=== PATIENT | female | born 1990 | race Caucasian/White ===

== ENCOUNTER 2016-08-01 21:50 | Outpatient (CLI) | payer OTHER | END 2016-08-01 21:51 | disposition EMS.NT | DX: R51 Headache (principal); S00.81XA Abrasion of other part of head, initial encounter; S00.83XA Contusion of other part of head, initial encounter; V47.5XXA Car driver injured in collision with fixed or stationary object in traffic accident, initial encounter; Y92.9 Unspecified place or not applicable ==

== ENCOUNTER 2016-08-01 23:27 | Emergency (ER) | payer OTHER | END 2016-08-02 00:10 | disposition home or self-care (01) | DX: S00.83XA Contusion of other part of head, initial encounter (principal); V48.5XXA Car driver injured in noncollision transport accident in traffic accident, initial encounter; Y92.488 Other paved roadways as the place of occurrence of the external cause ==

== ENCOUNTER 2018-01-11 11:11 | Outpatient (CLI) | payer OTHER ==
[2018-01-11 19:15] LABS: BASOPHILS % (AUTO) 0.4 %; EOSINOPHILS # (AUTO) 0.1 10^3/uL (0.0-0.7); EOSINOPHILS % (AUTO) 1.1 %; HGB - HEMOGLOBIN 13.7 g/dL (12.0-16.0); LYMPHOCYTES # (AUTO) 1.9 10^3/uL (1.5-3.5); LYMPHOCYTES % (AUTO) 30.7 %; MEAN CORPUSCULAR HEMOGLOBIN 30.5 pg (27.0-31.0); MEAN CORPUSCULAR HGB CONC 33.8 g/dL (32.0-36.0); MEAN CORPUSCULAR VOLUME 90.1 fL (81.0-99.0); MEAN PLATELET VOLUME 8.3 fL (7.9-10.8); MONOCYTES # (AUTO) 0.5 10^3/uL (0.0-1.0); MONOCYTES % (AUTO) 7.3 %; NEUTROPHILS # (AUTO) 3.8 10^3/uL (1.5-6.6); NEUTROPHILS % (AUTO) 60.5 %; PLT - PLATELET COUNT 239 10^3/uL (130-450); RED CELL DISTRIBUTION WIDTH 12.9 % (12.0-15.0); WHITE BLOOD COUNT 6.3 x10^3/uL (4.8-10.8)
[2018-01-11 19:48] LABS: ALBUMIN 4.3 g/dL (3.2-5.5); ALBUMIN/GLOBULIN RATIO 1.5 (1.0-2.2); ALKALINE PHOSPHATASE 48 IU/L (42-121); ALT ALANINE AMINOTRANSFERASE 15 IU/L (10-60); AST ASPARTATE AMINOTRANSFERASE 19 IU/L (10-42); BILIRUBIN,TOTAL 0.5 mg/dL (0.2-1.0); BUN - BLOOD UREA NITROGEN 6 mg/dL (6-20); CALCIUM 9.3 mg/dL (8.5-10.3); CARBON DIOXIDE - CO2 26 mmol/L (21-32); CHLORIDE 104 mmol/L (101-111); CHOL/HDL RATIO 2.1 (<4.4); CHOLESTEROL 226 mg/dL; CREATININE 0.8 mg/dL (0.4-1.0); GFR - MDRD 86 (>89); GLUCOSE 93 mg/dL (70-100); HDL CHOLESTEROL 108 mg/dL; LDL CHOLESTEROL,CALCULATED 107 mg/dL; SODIUM 137 mmol/L (135-145); TOTAL PROTEIN 7.2 g/dL (6.7-8.2); VLDL CHOLESTEROL 11 mg/dL
== END 2018-01-11 11:12 | disposition home or self-care (01) ==
LOC: LAB.N 11:11
PROVIDERS: ATTEND Nurse Practitioner Gerontology
DX: Z82.49 Family history of ischemic heart disease and other diseases of the circulatory system (principal); Z00.00 Encounter for general adult medical examination without abnormal findings
CPT/HCPCS: 36415; 80053; 80061; 83721; 84443; 85025

== ENCOUNTER 2018-04-20 16:06 | Outpatient (CLI) | payer OTHER ==
--- NOTE | 2018-04-21 15:01 | Ultrasound Report ---
Reason: TEST POSITIVE Procedure Date: 04/20/2018 Accession Number: [id number] / [id number] Procedure: US - OB First Trimester CPT Code: FULL RESULT: EXAM: FIRST TRIMESTER OBSTETRIC ULTRASOUND (Less than 11 weeks) EXAM DATE: 04/20/2018 05:30 PM. CLINICAL HISTORY: TEST POSITIVE. LMP: 02/18/2018. COMPARISONS: None. TECHNIQUE: Transabdominal and transvaginal ultrasound examination with static image documentation. CLINICAL DATES: EGA 8 weeks 5 days with SERENA 11/20/2018 based on LMP. ASSESSMENT: Gestational Sac: Single intrauterine. Embryo: CRL (crown-rump length) 21.6 mm = 8 weeks 6 days. Cardiac activity: 189 beats per minute. Yolk sac: 5.1 mm. Amniotic fluid: Not accurately assessed at this gestational age. Early placenta: Not visible at this gestational age. Other: No perigestational fluid collection demonstrated. MATERNAL STRUCTURES: Uterus: Anteverted. Unremarkable. Cervix: Closed. Right Ovary/Adnexa: The ovary measures 3.4 x 2.4 x 2.1 cm, volume 8.9 cc. 1.4 x 0.9 x 1 cm simple right ovarian cyst. No wall irregularities, mural nodules or thickened septations.. Left Ovary/Adnexa: The ovary measures 2 x 1.4 x 1.4 cm, volume 2 cc. Unremarkable. Free Fluid: Small volume free fluid noted in the pelvis. Other: None. IMPRESSION: 1. Single viable intrauterine at EGA 8 weeks 6 days with SERENA 11/24/2018 based on crown-rump length, which is concordant with clinical dates. 2. Assigned dating is SERENA 11/24/2018 based on LMP. 3. No complications such as a subchorionic hemorrhage. 4. 1.4 cm simple right ovarian cyst. Both ovaries and adnexa otherwise unremarkable. RADIA
== END 2018-04-20 16:07 | disposition home or self-care (01) ==
LOC: DI 16:06
PROVIDERS: ATTEND Nurse Practitioner Obstetrics & Gynecology
DX: O34.81 Maternal care for other abnormalities of pelvic organs, first trimester (principal); N83.201 Unspecified ovarian cyst, right side; Z3A.08 8 weeks gestation of pregnancy
CPT/HCPCS: 76801

== ENCOUNTER 2018-05-07 12:44 | Outpatient (CLI) | payer OTHER | END 2018-05-07 23:59 | disposition home or self-care (01) | LOC: LAB.R 12:44 | PROVIDERS: ATTEND Nurse Practitioner Obstetrics & Gynecology | DX: Z36.89 Encounter for other specified antenatal screening (principal) | CPT/HCPCS: 87491; 87591 ==

== ENCOUNTER 2018-05-07 13:19 | Outpatient (CLI) | payer OTHER ==
[2018-05-07 14:03] LABS: BASOPHILS % (AUTO) 0.1 %; EOSINOPHILS % (AUTO) 0.6 %; HGB - HEMOGLOBIN 12.1 g/dL (12.0-16.0); LYMPHOCYTES # (AUTO) 1.7 10^3/uL (1.5-3.5); LYMPHOCYTES % (AUTO) 23.4 %; MEAN CORPUSCULAR HEMOGLOBIN 30.5 pg (27.0-31.0); MEAN CORPUSCULAR HGB CONC 34.9 g/dL (32.0-36.0); MEAN CORPUSCULAR VOLUME 87.4 fL (81.0-99.0); MEAN PLATELET VOLUME 8.2 fL (7.9-10.8); MONOCYTES # (AUTO) 0.4 10^3/uL (0.0-1.0); MONOCYTES % (AUTO) 4.9 %; NEUTROPHILS # (AUTO) 5.3 10^3/uL (1.5-6.6); PLT - PLATELET COUNT 203 10^3/uL (130-450); RED BLOOD COUNT 3.96 10^6/uL (4.20-5.40); RED CELL DISTRIBUTION WIDTH 12.4 % (12.0-15.0); WHITE BLOOD COUNT 7.5 x10^3/uL (4.8-10.8)
[2018-05-07 14:10] LABS: MUDS CUTOFF CONCENTRATIONS CUTOFF CONC BELOW:
[2018-05-07 14:12] LABS: BILIRUBIN,URINE NEGATIVE (NEGATIVE); GLUCOSE, URINE (UA) NEGATIVE (NEGATIVE); KETONES,URINE (UA) NEGATIVE (NEGATIVE); LEUKOCYTE ESTERASE, URINE NEGATIVE (NEGATIVE); NITRITE,URINE NEGATIVE (NEGATIVE); OCCULT BLOOD,URINE NEGATIVE (NEGATIVE); PROTEIN,URINE NEGATIVE (NEGATIVE); UROBILINOGEN,URINE 0.2 (NORMAL) E.U./dL (NORMAL)
[2018-05-07 14:22] LABS: AMPHETAMINE SCREEN,URINE NEGATIVE (NEGATIVE); BENZODIAZEPINES SCREEN, URINE NEGATIVE (NEGATIVE); CLARITY,URINE CLEAR (CLEAR); COCAINE SCREEN URINE NEGATIVE (NEGATIVE); METHADONE SCREEN, URINE NEGATIVE (NEGATIVE); METHAMPHETAMINES SCREEN, URINE NEGATIVE (NEGATIVE); OPIATE SCREEN, URINE NEGATIVE (NEGATIVE); OXYCODONE SCREEN, URINE NEGATIVE (NEGATIVE); PROPOXYPHENE SCREEN, URINE NEGATIVE (NEGATIVE); TRICYCLIC ANTIDEPRESSANT,URINE NEGATIVE (NEGATIVE)
[2018-05-07 14:29] LABS: BACTERIA,URINE Many /HPF (None Seen); RBC,URINE 0-5 /HPF (0-5); SQUAMOUS EPITHELIAL CELL,UR FEW Squamous (<= Few)
[2018-05-08 12:41] LABS: HEPATITIS C ANTIBODY NON-REACTIVE (NON-REACTIVE)
[2018-05-08 12:57] LABS: HEPATITIS B SURFACE ANTIGEN NON-REACTIVE (NON-REACTIVE)
[2018-05-08 13:31] LABS: HIV AG/AB 4TH GEN NON-REACTIVE (NON-REACTIVE)
== END 2018-05-07 13:20 | disposition home or self-care (01) ==
LOC: LAB 13:19
PROVIDERS: ATTEND Nurse Practitioner Obstetrics & Gynecology
DX: Z36.89 Encounter for other specified antenatal screening (principal)
CPT/HCPCS: 36415; 80306; 81001; 81599; 85025; 86762; 86803; 86850; 86900; 86901; 87086; 87340; 87389; 87491; 87591

== ENCOUNTER 2018-07-19 13:40 | Outpatient (CLI) | payer OTHER ==
--- NOTE | 2018-07-19 16:58 | Ultrasound Report ---
Reason: SUPERVISION OF NORMAL Procedure Date: 07/19/2018 Accession Number: [id number] / [id number] Procedure: US - OB Detailed Eval CPT Code: FULL RESULT: EXAM: COMPLETE OBSTETRICAL ULTRASOUND EXAM DATE: 07/19/2018 02:57 PM. CLINICAL HISTORY: anatomic survey. COMPARISON: OB FIRST TRIMESTER 04/20/2018 4:37 PM. TECHNIQUE: Real-time sonographic evaluation of the fetus performed by the metalizing supervisor. Multiple workforce services representative static images were saved for review. DATING: Established EGA 21 weeks 4 days with SERENA 11/25/2018 based on LMP/physician stated. EGA 21 weeks 5 days with SERENA 11/24/2018 based on prior ultrasound 04/20/2018. EGA 22 weeks 0 days with SERENA 11/22/2018 based on the current ultrasound. GENERAL EVALUATION Dwyer . Cardiac activity: 150 bpm. movement: Visualized. Presentation: Cephalic. Placenta: Anterior position. No evidence for previa. Umbilical cord: 3 vessel cord. Central placental cord origin. Amniotic fluid: Subjectively normal. MVP 4.4 cm. BIOMETRY Bi-Parietal Diameter (BPD): 4.9 cm, 20 weeks 6 days Head Circumference (HC): 19.7 cm, 21 weeks 6 days Abdominal Circumference (AC): 17.8 cm, 22 weeks 5 days Femur Length (FL): 3.9 cm, 22 weeks 5 days Estimated Weight: 511 g, 88th percentile for 21 weeks 4 days. ANATOMY The intracranial structures, profile, face/nose/lips, spine, 4 chamber heart and outflow tracts, stomach, abdominal wall and cord insertion, diaphragm, kidneys, bladder, and extremities were visualized and demonstrate no abnormality. Borderline dolichocephalic skull shape. MATERNAL STRUCTURES Uterus: Unremarkable. Cervix: Long and closed. Transabdominal length 4 cm. Right ovary/adnexa: Unremarkable. Left ovary/adnexa: Unremarkable. Free fluid: None. IMPRESSION: 1. Dwyer live intrauterine with gestational age 21 weeks 4 days based on LMP/physician stated. 2. Estimated weight is within expected limits for assigned dating. 3. Borderline dolichocephalic skull shape. 4. Normal anatomic survey. No anatomic abnormalities are detected at this time. RADIA
== END 2018-07-19 13:41 | disposition home or self-care (01) ==
LOC: DI 13:40
PROVIDERS: ATTEND Registered Nurse
DX: Z34.90 Encounter for supervision of normal pregnancy, unspecified, unspecified trimester (principal)
CPT/HCPCS: 76811

== ENCOUNTER 2018-08-13 08:00 | Outpatient (CLI) | payer OTHER ==
[2018-08-13 12:43] LABS: HGB - HEMOGLOBIN 11.9 g/dL (12.0-16.0); MEAN CORPUSCULAR HEMOGLOBIN 31.1 pg (27.0-31.0); MEAN CORPUSCULAR HGB CONC 34.5 g/dL (32.0-36.0); MEAN CORPUSCULAR VOLUME 90.3 fL (81.0-99.0); MEAN PLATELET VOLUME 8.8 fL (7.9-10.8); RED BLOOD COUNT 3.82 10^6/uL (4.20-5.40); RED CELL DISTRIBUTION WIDTH 13.1 % (12.0-15.0); WHITE BLOOD COUNT 10.6 x10^3/uL (4.8-10.8)
== END 2018-08-13 23:59 | disposition home or self-care (01) ==
LOC: LAB.N 08:00
PROVIDERS: ATTEND Nurse Practitioner Obstetrics & Gynecology
DX: Z36.89 Encounter for other specified antenatal screening (principal)
CPT/HCPCS: 36415; 82950; 85027; 86850

== ENCOUNTER 2018-10-27 11:58 | Outpatient (CLI) | payer OTHER ==
[2018-10-27 20:06] LABS: TRICHOMONAS VAGINALIS DNA NEGATIVE (NEGATIVE)
== END 2018-10-27 23:59 | disposition home or self-care (01) ==
LOC: LAB.R 11:58
PROVIDERS: ATTEND Nurse Practitioner Obstetrics & Gynecology
DX: Z36.85 Encounter for antenatal screening for Streptococcus B (principal); Z36.89 Encounter for other specified antenatal screening
CPT/HCPCS: 87491; 87591; 87661; 87797

== ENCOUNTER 2018-10-31 05:19 | Inpatient (IN) | payer OTHER ==
[2018-10-31 06:02] LABS: RUPTURE OF MEMBRANES PLUS POSITIVE (NEGATIVE)
[2018-10-31] MEDS ORDERED: ONDANSETRON 4 MG/2 ML VIAL IVP PRN ×2 (07:44→10:05)
[2018-10-31] MEDS ORDERED: fentaNYL 100 MCG/2 ML VIAL IVP PRN (07:44)
[2018-10-31] MEDS ORDERED: SODIUM CHLORIDE FLUSH 0.9% 10 ML SYRINGE IVP PRN (07:44)
--- NOTE | 2018-10-31 07:50 | HISTORY & PHYSICAL EXAMINATION ---
Admit History - Visit Reason Visit Reason: Membranes rupture - : 1 Parity: 0 Premature: 0 Ectopic: 0 : 0 Care: positive: [facility] Risk/History: positive: None Complications This : positive: None Smoking Status: Never smoker - Mother's Labs Mother's Blood Type: positive: O Mother's RH: positive: Positive GBS: positive: Group B Step Negative Rubella Status: positive: Immune Meds/Allgy - Allergies Allergies/Adverse Reactions: Allergies Allergy/AdvReac Type Severity Reaction Status Date / Time peanut Allergy Anaphylaxis Verified 08/01/16 23:42 Review of Systems - Constitutional Constitutional: denies: Fatigue, Fever, Chills, Malaise - Eyes Eyes: denies: Blurred vision, Spots in vision, Dipolpia - Cardiovascular Cariovascular: denies: Irregular heart rate, Palpitations, Chest pain, Edema - Gastrointestinal Gastrointestinal: denies: Constipation, Diarrhea, Change in bowel habits, Nausea, Vomiting - Integumentary Integumentary: denies: Rash, Pruritis - Neurological Neurological: denies: Headache - Psychiatric Psychiatric: denies: Depression, Anxiety Physical - Abdominal Exam Vital Signs: Temp Pulse Resp BP Pulse Ox 36.9 C 81 18 132/84 H 100 10/31/18 05:40 10/31/18 05:40 10/31/18 05:40 10/31/18 06:06 10/31/18 05:40 Contraction Frequency (min/apart): intermittent Contraction Intensity: positive: Moderate Uterine Resting Tone: positive: Soft - Monitoring Heart Rate Baseline: 150 Strip Review: positive: Category I - Presentation Presentation: positive: Vertex - Vaginal Exam Membranes: positive: Membranes intact Dilation (in cm): 4 Effacement (%): 80 Station: positive: -1 Cervical Position: positive: Midposition - Speculum Exam Speculum Exam Performed: positive: No Findings: positive: Gross leak - Other Notes Labor Progress Note/Additional Text: HPI: This 27yo @ 36.3wks gestation by LMP presents at 0530 on 10/31/2018 with complaints of spontaneous rupture of membranes. She reports +FM and denies vaginal bleeding or contractions. Upon arrival she was noted to have clear leakage of vaginal fluid and her ROM plus was positive. Contractions intermittently via tocometry and palpate moderate. SVE 4/80/-1, vertex, soft, midposition. She has been a patient of [facility] through the duration of her which has been uncomplicated. She was admitted to [facility] for active management. Dating Criteria: LMP 02/18/2019-sure Initial ultrasound @ 8.6wks - agrees Serial exams agree OB History: G1 Current PMHx: Anaphylactic peanut allergy Surgical Hx: none Social Hx: Never smoker, no ETOH or IVDA. Active runner through the duration of her . 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 Has good family support that lives close by. Family Hx: MGF, PGF = Heart disease; MG= Breast cancer Genetic Hx: none; FOB none Medications: PNV Allergies: Peanuts (anaphylaxis - carries epipen with her) labs: Hgb 13.7; Hct 40.5; PLT 239 O positive, antibody negative Rubella immune RPR non-reactive Hep B neg HIV neg Hep C neg TSH 1.44 UTOX neg Urine culture negative Genetic testing: Exchange negative- sex male 28wk labs: 1 hour GTT 120 Hgb 11.9; Hct 34.5; PLT 190 Antibody negative GBS negative Immunizations: Influenza 01/11/2018 Tdap 08/26/2018 Ultrasounds: Initial ultrasound at 8.6wks gestation - agrees with LMP dating FAS WNL @ 21.4wks gestation c/w LMP dating. Anterior placenta, no previa. Borderline dolichocephalic skull shape. Physical Exam: Normocephalic, atraumatic PERRLA Heart RRR w/o M/G/R Lungs CTAB Abdomen gravid, soft and nontender. EFW 2900g SVE 4/80/-1, vertex, midposition, soft Contractions palpate moderate intermittently FHR baseline 150s, moderate variability, + accels, no decels Bilateral LE's no edema Assessment: 27yo @ 36.3wks gestation by LMP c/w 8.6wk US Spontaneous rupture of membranes Early labor FHR Category I GBS negative Plan: Admit to [facility] for active management Initiate pitocin with titration per protocol for augmentation of labor Continuous monitoring Will notify pediatrics to be present at delivery secondary to gestation. Epidural per maternal request. Anticipate spontaneous vaginal delivery. Reevaluate in 4 hours or sooner PRN.
[2018-10-31] MEDS ORDERED: OXYTOCIN/SODIUM CHLORIDE 500 ML IV SCH (08:00)
[2018-10-31 08:55] LABS: BASOPHILS % (AUTO) 0.3 %; EOSINOPHILS % (AUTO) 0.4 %; HGB - HEMOGLOBIN 10.6 g/dL (12.0-16.0); LYMPHOCYTES # (AUTO) 1.6 10^3/uL (1.5-3.5); LYMPHOCYTES % (AUTO) 14.4 %; MEAN CORPUSCULAR HGB CONC 32.9 g/dL (32.0-36.0); MEAN CORPUSCULAR VOLUME 85.2 fL (81.0-99.0); MEAN PLATELET VOLUME 10.8 fL (7.9-10.8); MONOCYTES # (AUTO) 0.8 10^3/uL (0.0-1.0); MONOCYTES % (AUTO) 7.6 %; NEUTROPHILS # (AUTO) 8.3 10^3/uL (1.5-6.6); NEUTROPHILS % (AUTO) 75.9 %; PLT - PLATELET COUNT 163 10^3/uL (130-450); RED BLOOD COUNT 3.78 10^6/uL (4.20-5.40); WHITE BLOOD COUNT 10.9 x10^3/uL (4.8-10.8)
[2018-10-31] MEDS: LACTATED RINGERS 1,000 ML IV SCH ×2 (08:57→12:19)
[2018-10-31] MEDS ORDERED: SODIUM CHLORIDE FLUSH 0.9% 10 ML SYRINGE IVP SCH (09:00)
[2018-10-31] MEDS ORDERED: fent/BUPIV 2 MCG/0.125% 250 ML EP ONE (09:13)
[2018-10-31] MEDS ORDERED: fent/BUPIV 2 MCG/0.125% 250 ML EP PRN (10:04)
[2018-10-31] MEDS ORDERED: NALBUPHINE 10 MG/ML AMP IVP PRN (10:05)
[2018-10-31] MEDS ORDERED: NALOXONE 0.4 MG/ML VIAL IVP PRN (10:05)
[2018-10-31] MEDS ORDERED: LACTATED RINGERS 500 ML IV ONE (10:05)
[2018-10-31] MEDS ORDERED: ePHEDrine 50 MG/ML VIAL IVP PRN (10:05)
[2018-10-31] MEDS ORDERED: diphenhydrAMINE INJ 50 MG/ML VIAL IVP PRN (10:05)
[2018-10-31] MEDS ORDERED: METOCLOPRAMIDE 10 MG/2 ML VIAL IVP PRN (10:05)
--- NOTE | 2018-10-31 10:13 | ANESTHESIA ---
Pre-Anesthesia VS, & Labs - Diagnosis Active labor - Procedure Continuous labor epidural Vital Signs: Temp Pulse Resp BP Pulse Ox 36.9 C 81 18 132/84 H 100 10/31/18 05:40 10/31/18 05:40 10/31/18 05:40 10/31/18 06:06 10/31/18 05:40 Height 5 ft 4 in Weight (kg) 72.121 kg Body Mass Index 21.4 - NPO Other (just had partial breakfast, asked to stop) - Is Patient ?: Yes - Lab Results Current Lab Results: Laboratory Tests 10/31/18 08:49: WBC 10.9 H, RBC 3.78 L, Hgb 10.6 L, Hct 32.2 L, MCV 85.2, MCH 28.0, MCHC 32.9, RDW 13.0, Plt Count 163, MPV 10.8, Neut # (Auto) 8.3 H, Lymph # (Auto) 1.6, [place] # (Auto) 0.8, Eos # (Auto) 0.0, Baso # (Auto) 0.0, Absolute Nucleated RBC 0.00, Nucleated RBC % 0.0 Fish Bones: 10/31/18 08:49 Home Medications and Allergies Active Medications Diphenhydramine HCl (Benadryl Inj) 12.5 - 25 mg IVP Q6HR PRN PRN Reason: ITCHING Ephedrine Sulfate () 5 mg IVP Q5M PRN PRN Reason: For SBP<100;give until SBP>100 Fentanyl (Fentanyl) 50 mcg IVP Q1H PRN PRN Reason: PAIN Lactated Ringer's (Lr) 1,000 mls @ 100 mls/hr IV .Q10H JAZMYN Last Admin: 10/31/18 08:57 Dose: 100 mls/hr Oxytocin/Sodium Chloride (Pitocin/Sodium Chloride) 500 mls @ 1 mls/hr IV TITR JAZMYN; Protocol Last Admin: 10/31/18 08:56 Dose: 1 milliunit/min, 1 mls/hr Fentanyl/Bupivacaine/Sodium Chlor (Fent/Bupiv 2 Mcg/0.125%) 250 mls @ 12 mls/hr EP .[id number] PRN PRN Reason: Analgesia Lactated Ringer's (Lr) 500 mls @ 999 mls/hr IV ONCE ONE Stop: 10/31/18 10:35 Metoclopramide HCl (Reglan Inj) 10 mg IVP Q6HR PRN PRN Reason: Nausea / Vomiting Nalbuphine HCl (Nubain) 2.5 - 5 mg IVP Q4H PRN PRN Reason: ITCHING Naloxone HCl (Narcan) 0.1 mg IVP Q2M PRN PRN Reason: RR<8 Ondansetron HCl (Zofran Inj) 4 mg IVP Q4HR PRN PRN Reason: Nausea / Vomiting Ondansetron HCl (Zofran Inj) 4 mg IVP Q6HR PRN PRN Reason: Nausea / Vomiting Sodium Chloride (Normal Saline Flush 0.9%) 10 ml IVP 0100,0900,1700 JAZMYN Last Admin: 10/31/18 08:59 Dose: 10 ml Sodium Chloride (Normal Saline Flush 0.9%) 10 ml IVP PRN PRN PRN Reason: NEEDED PER PROVIDER ORDERS Allergies/Adverse Reactions: Allergies Allergy/AdvReac Type Severity Reaction Status Date / Time peanut Allergy Anaphylaxis Verified 08/01/16 23:42 Anes History & Medical History - Anesthetic History Anesthesia Complications: reports: No previous complications Family history of Anesthesia Complications: Denies Family history of Malignant Hyperthermia: Denies - Medical History Cardiovascular: reports: None Pulmonary: reports: None Gastrointestinal: reports: None Urinary: reports: None Neuro: reports: None Musculoskeletal: reports: None Endocrine/Autoimmune: reports: None Blood Disorders: reports: None Skin: reports: None Smoking Status: Never smoker Psychosocial: reports: No issues indicated - Obstetrical History : 1 Parity: 0 Events: positive: None Complications: positive: None Exam General: Alert Dental: WNL Mouth Opening: Greater than 4 Fingerbreadths Neck Mobility: Normal Mallampati classification: I Plan Anesthesia Type: Epidural Consent for Procedure(s) Verified and Reviewed: Yes Code Status: Attempt Resuscitation ASA classification: 2-Mild systemic disease Is this case an emergency?: Yes (active labor)
[2018-10-31] MEDS ORDERED: HYDROCORTISONE 1% CREAM 28 GM TUBE PR PRN (13:34)
[2018-10-31] MEDS ORDERED: WITCH HAZEL/GLYCERIN 1 PAD TOP PRN (13:34)
--- NOTE | 2018-10-31 13:47 | DELIVERY NOTE ---
Delivery Note - Labor Labor: positive: Augmented by oxytocin - Delivery Method Delivery Method: positive: Spontaneous vaginal delivery - Presentation Presentation: positive: Vertex, JONATHAN - right occiput anterior - Nuchal Cord Nuchal Cord: positive: Present, Reduced - Amniotic Fluid Description Amniotic Fluid Description: positive: Clear - Episiotomy Type Episiotomy Type: positive: None - Laceration Laceration: positive: 1st degree, Vaginal - Suture Suture Type: positive: Vicryl Suture Size: positive: 3-0 - Delivery Outcome Delivery Outcome: positive: Livebirth - [place] : positive: Placed in direct skin contact with mother, Suctioned, Bulb syringe, Stimulated, Warmed, Bolt used, Warmer used [place] sex: positive: Male - Cord Cord: positive: 3 vessels - Placenta Placenta: positive: Intact, Spontaneous - Estimated Blood Loss Estimated Blood Loss (in cc): 250 - Post Delivery Events Post Delivery Events: positive: No post delivery events - Delivery Comments (Free Text/Narrative) Delivery Comments (Free Text/Narrative): Labor: This 2yo @ 36.3wks gestation by LMP c/w 8.6wk U/S presented at approximately 0530 on 10/31/2018 with spontaneous rupture of membranes at 0420. Upon arrival her cervix was 4/80/-1, vertex, midposition, soft. FHR pattern demonstrated Category I pattern throughout labor. Epidural placed upon maternal request. Pitocin administered via IV for augmentation of labor for a max infusion rate of 5mU/mL. Patient progressed to c/c/+1 at 1206 and began actively pushing at 1228. : Normal of a viable male at 1241 on 10/31/2018 in JONATHAN position. Nuchal cord x 1 easily reduced. Compound right hand. The was placed on maternal abdomen, stimulated, dried, and placed skin to skin. Bulb syringe used and blow by O2 administered. Pitocin administered via IV for hemostasis. Umbilical cord was allowed to stop pulsating at which time it was doubly clamped by CNM and cut by FOB. 3VC. Unable to collected cord blood secondary to none present in umbilical cord after pulsation ceased. Blood drawn from placental vessels. Placenta delivered spontaneously and intact at 1246. EBL 250mL. Dr. Marinelli, garden consultant paving plant operator phoned to be present following delivery as experienced poor respiratory effort and grunting shortly after delivery. taken to warmer secondarily and PPV administered. Uterine fundus firm and there is no excessive bleeding. The perineum, vagina, and cervix were inspected and found to have 1st degree vaginal laceration which was repaired using a 3-[address]-1 needle in standard fashion under sterile conditions. Vaginal examination following repair was done. Tissues well approximated.
[2018-10-31] MEDS: ACETAMINOPHEN 500 MG TABLET PO SCH ×2 (14:07→22:00)
[2018-10-31] MEDS: IBUPROFEN 800 MG TABLET PO SCH ×2 (14:07→20:08)
[2018-10-31] MEDS: DOCUSATE SODIUM 100 MG CAPSULE PO SCH (21:30)
[2018-11-01] MEDS: IBUPROFEN 800 MG TABLET PO SCH ×4 (01:49→23:09)
[2018-11-01] MEDS: ACETAMINOPHEN 500 MG TABLET PO SCH ×3 (06:11→23:09)
--- NOTE | 2018-11-01 07:49 | PROVIDER PROGRESS NOTE ---
Subjective - Subjective Subjective: S: Bonding well with baby. Feeling better now that baby is off of the monitors and supplemental oxygen. She is having some struggles with but pt feels that this is normal for a baby of this gestation and she has been reassured by all of the help from nursing staff. She has been pumping and syringe feeding what she can. Baby is on IV D5 and doing well. Pt is doing very well emotionally. Pt reports her perineum is sore but pain is well managed with oral medications. Bleeding decreased and is very light. and mother supportive at the bedside. O: Heart RRR w/o M/G/R, lungs CTAB, abdomen soft and nontender with fundus firm at U-2. Bilateral LE's no edema. A: 27yo -->P1 PPD#1 s/p of viable male named Thanh @ 36.3wks gestation GBS negative delivery P: Continue routine care and medications. Advised special attention paid to today. Reviewed with patient that one of our physician providers will see her tomorrow and evaluate her for discharge to [facility] mom status as will still be inpatient. Pt verbalized understanding and agrees to above plan. She denies further questions or concerns at this time. Objective - Vital Signs/Intake & Output Vital Signs: Vital Signs x48h Temp Pulse Resp BP Pulse Ox 11/01/18 04:00 36.9 C 88 16 124/87 H 99 11/01/18 00:40 36.8 C 84 17 133/79 H Intake & Output: Intake & Output 10/29/18 10/30/18 10/31/18 11/01/18 23:59 23:59 23:59 23:59 Intake Total 1981.667 500 Output Total 1075 Balance 906.667 500 - Lab Results Fish Bones: 10/31/18 08:49 Other Labs: Lab Results x24hrs 10/31/18 Range/Units 08:49 WBC 10.9 H (4.8-10.8) x10^3/uL RBC 3.78 L (4.20-5.40) 10^6/uL Hgb 10.6 L (12.0-16.0) g/dL Hct 32.2 L (37.0-47.0) % MCV 85.2 (81.0-99.0) fL MCH 28.0 (27.0-31.0) pg MCHC 32.9 (32.0-36.0) g/dL RDW 13.0 (12.0-15.0) % Plt Count 163 (130-450) 10^3/uL MPV 10.8 (7.9-10.8) fL Neut # (Auto) 8.3 H (1.5-6.6) 10^3/uL Lymph # (Auto) 1.6 (1.5-3.5) 10^3/uL [place] # (Auto) 0.8 (0.0-1.0) 10^3/uL Eos # (Auto) 0.0 (0.0-0.7) 10^3/uL Baso # (Auto) 0.0 (0.0-0.1) 10^3/uL Absolute Nucleated RBC 0.00 x10^3/uL Nucleated RBC % 0.0 /100WBC
[2018-11-01] MEDS: DOCUSATE SODIUM 100 MG CAPSULE PO SCH ×2 (08:38→20:24)
[2018-11-02] MEDS: IBUPROFEN 800 MG TABLET PO SCH (05:52)
[2018-11-02 11:34] VITALS: BP 136/76
--- NOTE | 2018-11-02 12:53 | PROVIDER PROGRESS NOTE ---
Subjective - Prog Note Date Prog Note Date: 11/02/18 Prog Note Time: 12:50 - Subjective Pt reports feeling: Improved (Selena is doing well. She is up and ambulatng, toleratng po, pain well managed wth oral meds. Voiding. nfbrenton Law is also doing quite well and is nursing well.) Objective - Vital Signs/Intake & Output Vital Signs: Vital Signs x48h Temp Pulse Resp BP Pulse Ox 11/02/18 11:33 85 18 136/76 H 100 11/02/18 08:00 98.4 F 87 18 142/89 H 99 Intake & Output: Intake & Output 10/30/18 10/31/18 11/01/18 11/02/18 23:59 23:59 23:59 23:59 Intake Total 1981.667 500 Output Total 1075 Balance 906.667 500 - Objective General Appearance: positive: No acute distress Eyes Bilateral: positive: No lid inflammation, Conjunctivae nml, No scleral icterus Neck: positive: Nml inspection Respiratory: positive: No respiratory distress, Breath sounds nml Cardiovascular: positive: Regular rate & rhythm Abdomen: positive: Non-tender, Other (Fundus firm below umb) Neurologic/Psychiatric: positive: Oriented x3 - Lab Results Fish Bones: 10/31/18 08:49 Assessment/Plan - Problem List (1) Vaginal delivery Impression: Selena palmer PPD#2 s/p at 36w3d- doing well Routine discharge instructions given DC to home pending clearance of for discharge FU in one week with TASNEEM Multani CNM
--- NOTE | 2018-11-02 16:15 | Labor Flowsheet ---
Labor Flowsheet Datetime Report Generated by CPN: 11/02/2018 16:15 Datetime: 11/02/2018 11:19 VITAL SIGNS NBP Sys/Margo/Mean (mmHg): 136 : 76 : 91 Pulse: 85 LaborFlag: Labor Datetime: 11/01/2018 04:00 SpO2 (%): 99 Datetime: 10/31/2018 12:42 Stage 2 Comments: 1241 male infant, nuchal x 1, right compound hand Datetime: 10/31/2018 12:41 UTERINE ACTIVITY Monitor Mode: External Frequency (min): 1-2 Quality: Strong Duration (sec): 50 Pattern: Normal: <= 5 Contractions in 10 Minutes Resting Tone (Palpate): Relaxed FHR Baseline Rate : 150 Variability: Moderate 6-25 bpm Comments: FHT 150s in between ctx. Datetime: 10/31/2018 12:40 Pushing Position: Pushing with Contractions Pushing Progress: Descent with Pushing; with Pushing Datetime: 10/31/2018 12:30 Contraction Comments: pitocin decreased, provider in room. stripped reviewed already. will continue to push with each ctx and monitor ASSESSMENT A Monitor Mode: Telemetry Accelerations: 15X15 Decelerations: Early; Variable Category: Category II Oxygen Method: Room Air Datetime: 10/31/2018 12:28 STAGE 2 Pushing: Urge to Push Datetime: 10/31/2018 12:16 COMMUNICATION Communication: Call/Page Returned by Provider Provider Notified (Name): Taylor Candice CNM called to come for delivery Datetime: 10/31/2018 12:15 FHR Baseline Changes: No Baseline Change Datetime: 10/31/2018 12:13 Respirations: 17 Temperature (C): 36.6 Datetime: 10/31/2018 12:06 VAGINAL EXAM Dilatation (cm): 10.0 Effacement (%): 100 Station: 1 Exam by: charmaine johnson rn Vaginal Bleeding: Scant Cervix, Consistency: Soft Cervix, Position: Anterior Vaginal Exam Comments: 2nd small blood clot noted on pad. Communication Comments: called to come in Datetime: 10/31/2018 12:05 MEDICATIONS Pitocin (milliunits): Decreased to @ 4 Datetime: 10/31/2018 12:00 Monitor Interventions for FHR: Ultrasound Adjusted Datetime: 10/31/2018 11:52 Anesthesia Level Check: T9 Datetime: 10/31/2018 11:49 PAIN Pain Coping: Talking Through Contractions Pain Assessment Comments: pt feeling pressure with ctx Patient Position/Activity: Left Lateral Patient Care Comments: peanut ball. Datetime: 10/31/2018 11:45 Actions for Decelerations: Other Datetime: 10/31/2018 11:30 Stage of : Labor Monitor Interventions for UA: [place] Adjusted Notification Reason: Status Update; Labor Status; Uterine Activity; Pain Datetime: 10/31/2018 09:54 Epidural Procedure Other: Pump Started Datetime: 10/31/2018 09:46 Epidural Procedure: Loading Dose Datetime: 10/31/2018 09:30 Pitocin Checklist: At Least 1 Acceleration of 15 bpm x 15 Seconds in 30 Minutes or Adequate Variabi lity; No More than 1 Late Deceleration Occurred in Past 30 Minutes; No More than 2 Variable Decelerat ions > 60 Seconds in Duration and decreasing >60 bpm in 30 minutes; No More than 5 Uterine Contractio ns in 10 Minutes for any 20 Minute Interval; Uterus Palpates Soft between Contractions Datetime: 10/31/2018 09:18 PROCEDURE TIME OUT Procedure Verify: Correct Patient Identity; Accurate Procedure Consent Form; Agreement on Procedure to be Done; Correct Patient Position; Addressed Need to Administer Antibiotics or Fluids for Irrigat ion; Safety Precautions Based on Patient History or Medication Use ANESTHESIA Anesthesia Plans: Epidural Epidural Positioning: Sitting Datetime: 10/31/2018 09:11 I/O Interventions: Up to BR Datetime: 10/31/2018 09:00 PATIENT CARE IV/Blood Work: IV Bolus Started Anesthesia Comments: taylor cedeño pastry assistant on his way for epidural placement
--- NOTE | 2018-11-03 19:10 | DISCHARGE SUMMARY ---
"Discharge Summary Admit Date: 10/31/18 Discharge Date: 11/02/18 Discharging Provider: Pina Bauman MD (covering for TASNEEM Tinsley) Condition at Discharge: Good Discharge Disposition: 01 Home, Self Care - DIAGNOSES Admission Diagnoses: IUP at 36w3d with rupture of membranes Discharge Diagnoses with Status of Each Condition: Same and vaginal delivery of late - HPI History of Present Illness: Ms Sheldon is a 27 yo , now P1, who presented at 36w3d with premature rupture of membranes. had been uncomplicated to date. No VB. tracing was category I at presentation. - CONSULTS | PROCEDURES Procedures: Spontaneous vaginal delivery - HOSPITAL COURSE Hospital Course: Ms Sheldon is a 27yo , now P1, @ 36.3wks gestation by LMP c/w 8.6wk U/S presented at approximately 0530 on 10/31/2018 with spontaneous rupture of membranes at 0420. Upon arrival her cervix was 4/80/-1, vertex, midposition, soft. FHR pattern demonstrated Category I pattern throughout labor. Epidural placed upon maternal request. Pitocin administered via IV for augmentation of labor for a max infusion rate of 5mU/mL. Patient progressed to c/c/+1 at 1206 and began actively pushing at 1228. : Normal of a viable male infant at 1241 on 10/31/2018 in JONATHAN position. Nuchal cord x 1 easily reduced. Compound right hand. The was placed on maternal abdomen, stimulated, dried, and placed skin to skin. Bulb syringe used and blow by O2 administered. Pitocin administered via IV for hemostasis. Umbilical cord was allowed to stop pulsating at which time it was doubly clamped by CNM and cut by FOB. 3VC. Unable to collected cord blood secondary to none present in umbilical cord after pulsation ceased. Blood drawn from placental vessels. Placenta delivered spontaneously and intact at 1246. EBL 250mL. Dr. Marinelli, scale reclamation tender transit bus driver phoned to be present following delivery as infant experienced poor respiratory effort and grunting shortly after delivery. taken to warmer secondarily and PPV administered. The perineum, vagina, and cervix were inspected and found to have 1st degree vaginal laceration which was repaired using a 3-[address]-1 needle in standard fashion under sterile conditions. Vaginal examination following repair was done. Tissues well approximated. Post course was uncomplicated. By PPD#2, she and baby were meeting goals for discharge and were discharged to home. - ALLERGIES Allergies/Adverse Reactions: Allergies Allergy/AdvReac Type Severity Reaction Status Date / Time peanut Allergy Anaphylaxis Verified 08/01/16 23:42 - MEDICATIONS Home Medications Other | Comments: Patient declined prescription and was instructed on appropriate dosing of home medications. - PHYSICAL EXAM AT DISCHARGE General Appearance: positive: No acute distress Respiratory: positive: Chest non-tender, No respiratory distress, Breath sounds nml Cardiovascular: positive: Regular rate & rhythm Abdomen: positive: Non-tender, Other (Fundus firm below umblicus) Skin: positive: Color nml Extremities: positive: Non-tender, No pedal edema Neurologic/Psychiatric: positive: Oriented x3 - LABS Result Diagrams: 10/31/18 08:49 - FOLLOW UP Follow Up: In one week with TASNEEM Tinsley CNM - TIME SPENT Time Spent in Discharge (Minutes): 20"
== END 2018-11-02 16:00 | disposition home or self-care (01) | DRG 807 ==
LOC: WFO 05:19 → FBP 05:20 → WFO 07:43 → FBP 07:44
PROVIDERS: ADMIT Nurse Practitioner Obstetrics & Gynecology; ATTEND Obstetrics & Gynecology
PROC: 10E0XZZ Delivery of Products of Conception, External Approach (ICD-10-PCS; principal; 2018-10-31)
PROC: 0HQ9XZZ Repair Perineum Skin, External Approach (ICD-10-PCS; 2018-10-31)
DX: O42.013 Preterm premature rupture of membranes, onset of labor within 24 hours of rupture, third trimester (principal); Z37.0 Single live birth; O32.6XX0 Maternal care for compound presentation, not applicable or unspecified; O70.0 First degree perineal laceration during delivery; O69.9XX0 Labor and delivery complicated by cord complication, unspecified, not applicable or unspecified; Z3A.36 36 weeks gestation of pregnancy
CPT/HCPCS: 84112; 85025; 99213; A9270; J7120

== ENCOUNTER 2020-05-06 13:30 | Outpatient (CLI) | payer OTHER | END 2020-05-06 13:31 | disposition home or self-care (01) | LOC: LAB.R 13:30 | PROVIDERS: ATTEND Nurse Practitioner | DX: B34.9 Viral infection, unspecified (principal); R05 Cough; Z20.822 Contact with and (suspected) exposure to COVID-19 | CPT/HCPCS: 87070; 87275; 87276 ==

== ENCOUNTER 2021-08-27 09:58 | Outpatient (CLI) | payer OTHER | END 2021-08-27 09:59 | disposition home or self-care (01) | LOC: LAB.N 09:58 | PROVIDERS: ATTEND Physician Assistant | DX: O20.9 Hemorrhage in early pregnancy, unspecified (principal) | CPT/HCPCS: 36415; 84702 ==

== ENCOUNTER 2021-08-28 14:27 | Emergency (ER) | payer OTHER ==
[2021-08-28 14:33] VITALS: BP 135/95
[2021-08-28 14:45] LABS: BASOPHILS % (AUTO) 0.3 %; EOSINOPHILS # (AUTO) 0.1 10^3/uL (0.0-0.7); EOSINOPHILS % (AUTO) 1.5 %; HCT - HEMATOCRIT 39.4 % (37.0-47.0); HGB - HEMOGLOBIN 13.6 g/dL (12.0-16.0); LYMPHOCYTES # (AUTO) 2.7 10^3/uL (1.5-3.5); MEAN CORPUSCULAR HEMOGLOBIN 29.9 pg (27.0-31.0); MEAN CORPUSCULAR HGB CONC 34.5 g/dL (32.0-36.0); MEAN CORPUSCULAR VOLUME 86.6 fL (81.0-99.0); MEAN PLATELET VOLUME 9.6 fL (7.9-10.8); MONOCYTES # (AUTO) 0.6 10^3/uL (0.0-1.0); MONOCYTES % (AUTO) 6.5 %; NEUTROPHILS # (AUTO) 5.3 10^3/uL (1.5-6.6); NEUTROPHILS % (AUTO) 60.4 %; PLT - PLATELET COUNT 267 10^3/uL (130-450); RED BLOOD COUNT 4.55 10^6/uL (4.20-5.40); RED CELL DISTRIBUTION WIDTH 12.6 % (12.0-15.0); WHITE BLOOD COUNT 8.8 x10^3/uL (4.8-10.8)
--- NOTE | 2021-08-28 14:55 | ED Physician Documentation ---
History of Present Illness - Stated complaint Stated Complaint: CRAMPING AND BLEEDING - Chief complaint Chief Complaint: Abd Pain - History obtained from History obtained from: Patient - History of Present Illness Pain level max: 6 Pain level now: 5 - Additonal information Additional information: Patient is a 30-year-old female, 2 para 1 who presents to the emergency department stating that she had a positive test 1 week ago. Had a hCG quantitative yesterday which was 10. Developed sharp left pelvic pain today. She states that she has had vaginal bleeding similar to her normal menses. She had been on control, but recently stopped this as they decided they wanted to try to become . Has had some nausea. No vomiting. No diarrhea or constipation. Worse with palpation and movement. Nothing makes it better. Review of Systems Constitutional: denies: Fever, Chills GI: denies: Vomiting, Diarrhea Skin: denies: Rash Musculoskeletal: denies: Neck pain, Back pain Neurologic: denies: Headache PD PAST MEDICAL HISTORY - Past Medical History Past Medical History: Yes Cardiovascular: None Respiratory: None Neuro: None Endocrine/Autoimmune: None GI: None : None Musculoskeletal: None Derm: None - Past Surgical History Past Surgical History: Yes - Allergies Allergies/Adverse Reactions: Allergies Allergy/AdvReac Type Severity Reaction Status Date / Time peanut Allergy Anaphylaxis Verified 08/28/21 14:31 - Social History Does the pt smoke?: No Smoking Status: Never smoker Does the pt drink ETOH?: Yes Does the pt have substance abuse?: No - Immunizations Immunizations are current?: Yes - POLST Patient has POLST: No PD ED PE NORMAL - Vitals Vital signs reviewed: Yes - General General: Alert and oriented X 3, No acute distress, Well developed/nourished - HEENT HEENT: PERRL, Moist mucous membranes - Neck Neck: Supple, no meningeal sign - Cardiac Cardiac: RRR - Respiratory Respiratory: No respiratory distress, Clear bilaterally - Abdomen Abdomen: Soft, Non tender, Non distended - Back Back: No CVA TTP - Derm Derm: Warm and dry - Extremities Extremities: No edema - Neuro Neuro: Alert and oriented X 3 - Psych Psych: Normal mood, Normal affect Results - Vitals Vitals: Vital Signs - 24 hr 08/28/21 08/28/21 14:29 16:05 Temperature 36.0 C L Heart Rate 94 74 Respiratory 16 14 Rate Blood Pressure 135/95 H O2 Saturation 100 97 Oxygen O2 Source Room air - Labs Labs: Laboratory Tests 08/28/21 08/28/21 08/28/21 14:38 14:38 14:38 WBC 8.8 RBC 4.55 Hgb 13.6 Hct 39.4 MCV 86.6 MCH 29.9 MCHC 34.5 RDW 12.6 Plt Count 267 MPV 9.6 Neut # (Auto) 5.3 Lymph # (Auto) 2.7 [place] # (Auto) 0.6 Eos # (Auto) 0.1 Baso # (Auto) 0.0 Absolute Nucleated RBC 0.00 Nucleated RBC % 0.0 Sodium 139 Potassium 3.3 L Chloride 104 Carbon Dioxide 24 Anion Gap 11.0 BUN 17 Creatinine 0.7 Estimated GFR (MDRD) 98 Glucose 112 H Calcium 9.2 Total Bilirubin 0.5 AST 18 ALT 14 Alkaline Phosphatase 50 Total Protein 7.6 Albumin 4.5 Globulin 3.1 Albumin/Globulin Ratio 1.5 Lipase 31 HCG, Quant 6.03 - Rads (name of study) OB ultrasound Radiology: Final report received, EMP read contemporaneously, See rad report PD MEDICAL DECISION MAKING - ED course Complexity details: reviewed results, re-evaluated patient, considered differential, d/w patient ED course: 30-year-old female with likely completed . Her hCG has gone from 10 to 6. No acute findings on ultrasound. No evidence of ectopic. Ectopic precautions were given at bedside. Recommend that she follow-up with her doctor for further care. Patient counseled regarding signs and symptoms for which I b elieve and urgent re-evaluation would be necessary. Patient with good understanding of and agreement to plan and is comfortable going home at this time This document was made in part using voice recognition software. While efforts are made to proofread this document, sound alike and grammatical errors may occur. IMPRESSION: of uncertain location. No intrauterine gestational sac. No ectopic seen. Missed is possible. Recommend trending beta hCG and possible short-term interval follow-up pelvic ultrasound. Departure - Departure Disposition: 01 Home, Self Care Clinical Impression: Miscarriage Condition: Good Instructions: ED Miscarriage Completed Follow-Up: Sussy Doss PA-C [Primary Care Provider] - Within 1 week Comments: Your hCG level has dropped from 10 to 6. Your ultrasound does not show any acute abnormalities today. It is likely that you are miscarrying. Please follow-up with your doctor for further care. Return if you worsen. Return especially for worsening pain, fevers or heavier than usual bleeding. Discharge Date/Time: 08/28/21 16:07
[2021-08-28 15:05] LABS: ALBUMIN 4.5 g/dL (3.2-5.5); ALBUMIN/GLOBULIN RATIO 1.5 (1.0-2.2); BILIRUBIN,TOTAL 0.5 mg/dL (0.2-1.0); CALCIUM 9.2 mg/dL (8.5-10.3); CREATININE 0.7 mg/dL (0.4-1.0); POTASSIUM 3.3 mmol/L (3.5-5.0); TOTAL PROTEIN 7.6 g/dL (6.7-8.2)
[2021-08-28] MEDS: METOCLOPRAMIDE 10 MG TABLET PO STA (15:23)
--- NOTE | 2021-08-28 16:17 | Ultrasound Report ---
PROCEDURE: OB First Trimester w/TV INDICATIONS: + preg test, L pelvic pain OUTSIDE/PRIOR DATING DATA: Last menstrual period (LMP): 07/23/2021. LMP-based estimated date of delivery (SERENA): 04/29/2022. First dating scan (date and location): 08/28/2021. TECHNIQUE: Real-time scanning was performed of the fetus and maternal pelvic organs, with image documentation. Endovaginal scanning was also performed to better visualize the fetus and maternal ovaries. COMPARISON: None. FINDINGS: Embryo: No intrauterine gestational sac is seen. No ectopic identified. Maternal organs: Ovaries are unremarkable. IMPRESSION: of uncertain location. No intrauterine gestational sac. No ectopic seen. Missed a bortion is possible. Recommend trending beta hCG and possible short-term interval follow-up pelvic ultrasound. Reviewed by: Salomón Fonseca MD on 08/28/2021 4:15 PM PDT Approved by: Salomón Fonseca MD on 08/28/2021 4:15 PM PDT Station ID: [id number]
== END 2021-08-28 16:07 | disposition home or self-care (01) ==
LOC: ED 14:27
DX: O03.9 Complete or unspecified spontaneous abortion without complication (principal)
CPT/HCPCS: 36415; 76801; 76817; 80053; 83690; 84702; 85025; 99282; 99284; A9270

== ENCOUNTER 2022-02-11 20:22 | Outpatient (CLI) | payer OTHER ==
--- NOTE | 2022-02-13 15:07 | Ultrasound Report ---
PROCEDURE: OB Detailed Eval INDICATIONS: SUPERVISION OF PREG OUTSIDE/PRIOR DATING DATA: Last menstrual period (LMP): 09/24/2021. LMP-based estimated date of delivery (SERENA): 06/23/2022. First dating scan (date and location): 11/19/2021. Estimated date of delivery (SERENA) from first dating scan: 07/05/2022. The below data below was generated using the ultrasound SERENA of 07/05/2022 TECHNIQUE: Real-time scanning was performed of the fetus, with image documentation and biometric measurements. COMPARISON: Limited in office ultrasound dated 11/19/2021 FINDINGS: General: A single living intrauterine gestation is present. Presentation: For Placenta: Placental position is posterior, without previa. Amniotic fluid index: 11.80 cm, within normal for gestational age. Largest pocket 3.5 cm heart rate: 144 beats per minute. Maternal cervical canal: 3.2 cm long; normal length is 2.5 cm or more. biometrics: Biparietal diameter: 4.6 cm 19 weeks 6 days Head circumference: 17.8 cm 20 weeks 2 days Abdominal circumference: 14 cm 19 weeks 2 days Femur length: 3.4 cm 20 weeks 4 days Estimated gestational age from initial scan: 19 weeks 3 Composite gestational age from present scan: 20 weeks 0 days Estimated weight and percentile: 3 23 g 76th percentile Measurement variability in biometric dating: +/- 10 days from 12-20 weeks gestation, +/- 2 weeks from 20-30 weeks gestation, +/- 3 weeks at 30 weeks gestation or later. Anatomic survey: Neuro: Ventricles are normal at less than 10 mm. Cisterna magna is normal at 3-11 mm. Cerebellum i s normal in size and morphology. Nuchal skin fold: Normal at less than 6 mm between 14 and 20 weeks gestational age. Face: Nose and lips, facial profile are normal. Spine: No evidence for spina bifida. Heart: 4-chambered heart is present, with normal ventricular outflow tracts. Diaphragm: Diaphragm is intact. Stomach: Left-sided stomach is present. Kidneys: No hydronephrosis. Normal is less than 5 mm in 2nd trimester, less than 7 mm in 3rd trimester. Cord: 3 vessel cord has orthotopic insertion. Bladder: Normal in size. Extremities: All 4 extremities are visualized. IMPRESSION: Single live intrauterine with ultrasound gestational age today 20 weeks 0 days. Anatomy is within normal limits. Reviewed by: Jesica Mota MD on 02/13/2022 3:06 PM PDT Approved by: Jesica Mota MD on 02/13/2022 3:06 PM PDT Station ID: [id number]
== END 2022-02-11 20:23 | disposition home or self-care (01) ==
LOC: DI 20:22
PROVIDERS: ATTEND Nurse Practitioner Obstetrics & Gynecology
DX: Z34.02 Encounter for supervision of normal first pregnancy, second trimester (principal); Z36.89 Encounter for other specified antenatal screening

== ENCOUNTER 2022-02-14 11:55 | Outpatient (CLI) | payer OTHER ==
[2022-02-26 11:10] LABS: AFP MOM See Comments (.); AFP VALUE 139.1 ng/mL (.); DIA MOM See Comments (.); DIA VALUE 128.7 pg/mL (.); DOWN SYNDROME See Comments (.); GESTATIONAL AGE See Comments weeks (.); HCG MOM See Comments (.); HCG VALUE 76.7 IU/mL (.); MATERNAL AGE AT EDD See Comments yr (.); OPEN SPINA BIFIDA See Comments (.); PAPP-A MOM See Comments (.); PAPP-A VALUE 536.7 ng/mL (.); TEST RESULTS See Comments (.); TRISOMY 18 See Comments (.); UE3 MOM See Comments (.); UE3 VALUE 2.92 ng/mL (.)
== END 2022-02-14 11:56 | disposition home or self-care (01) ==
LOC: LAB.N 11:55
PROVIDERS: ATTEND Nurse Practitioner Obstetrics & Gynecology
DX: Z13.79 Encounter for other screening for genetic and chromosomal anomalies (principal)
CPT/HCPCS: 82105; 82677; 84702; 86336

== ENCOUNTER 2022-03-16 18:37 | Emergency (ER) | payer OTHER | END 2022-03-16 19:50 | LOC: ED 18:37 | DX: Z53.9 Procedure and treatment not carried out, unspecified reason (principal) ==

== ENCOUNTER 2022-03-16 19:48 | Outpatient (CLI) | payer OTHER ==
[2022-03-16 20:07] VITALS: BP 116/69
[2022-03-16] MEDS ORDERED: guaiFENesin/DEXTROMETHORPHAN 10 ML UDC PO SCH (20:35)
--- NOTE | 2022-03-16 20:35 | PROVIDER PROGRESS NOTE ---
Subjective - Prog Note Date Prog Note Date: 03/16/22 Prog Note Time: 08:00 - Subjective Pt reports feeling: No change (coughing and decreased movement) Current Medications - Current Medications Current Medications: will give her Robitussin cough + chest congestion DM Objective - Vital Signs/Intake & Output Reviewed Vital Signs: Yes Vital Signs: Vital Signs x48h Temp Pulse Resp BP 03/16/22 20:03 98.2 F 111 H 22 116/69 - Objective General Appearance: positive: Mild distress Respiratory: positive: Chest non-tender, Breath sounds nml Cardiovascular: positive: Regular rate & rhythm Abdomen: positive: Non-tender Extremities: positive: Non-tender Assessment/Plan - Problem List (1) Decreased movement Qualifiers: Fetus number: single or unspecified fetus Trimester: second trimester Qualified Code(s): O36.8120 - Decreased movements, second trimester, not applicable or unspecified - [facility] Diagnosis/Indication for NST: Decreased movement Vital Signs Temperature 98.2 F 03/16/22 20:03 Heart Rate 111 H 03/16/22 20:03 Respiratory Rate 22 03/16/22 20:03 Blood Pressure 116/69 03/16/22 20:03 Temperature 98.2 F 03/16/22 20:03 Heart Rate 111 H 03/16/22 20:03 Respiratory Rate 22 03/16/22 20:03 Blood Pressure 116/69 03/16/22 20:03 O2 Saturation If not protocol: Oxygen Flow, liters/minute - Results and Plan Findings/Impression: reactive, no deceleration Plan: After she came in, she noticed more movement. She states that she had so much abdominal soreness due to coughing, she was not able to feel the movement but she can noticed more when she was on the monitoring. She was reassured and cough medication will be prescribed. She will be seen by her CNM and BPP and NST will be ordered if indicated.
--- NOTE | 2022-03-16 20:54 | PROCEDURE REPORT ---
- HPI Diagnosis/Indication for NST: Decreased movement Vital Signs Temperature 98.2 F 03/16/22 20:03 Heart Rate 111 H 03/16/22 20:03 Respiratory Rate 22 03/16/22 20:03 Blood Pressure 116/69 03/16/22 20:03 Temperature 98.2 F 03/16/22 20:03 Heart Rate 111 H 03/16/22 20:03 Respiratory Rate 22 03/16/22 20:03 Blood Pressure 116/69 03/16/22 20:03 O2 Saturation If not protocol: Oxygen Flow, liters/minute - Results and Plan Findings/Impression: reactive. moderate variability no deceleration Acceleration Plan: FU by her CNM cont cough medication count of kicking and report
== END 2022-03-16 20:55 | disposition home or self-care (01) ==
LOC: WFO 19:48 → FBP 19:54 → WFO 20:55
PROVIDERS: ATTEND Obstetrics & Gynecology
DX: O36.8120 Decreased fetal movements, second trimester, not applicable or unspecified (principal); O99.891 Other specified diseases and conditions complicating pregnancy; R05.9 Cough, unspecified; R09.89 Other specified symptoms and signs involving the circulatory and respiratory systems
CPT/HCPCS: 99213; A9270; 59025; 99214

== ENCOUNTER 2022-04-14 14:16 | Outpatient (CLI) | payer OTHER ==
[2022-04-14 18:10] LABS: HCT - HEMATOCRIT 34.4 % (37.0-47.0); HGB - HEMOGLOBIN 11.2 g/dL (12.0-16.0); MEAN CORPUSCULAR HEMOGLOBIN 29.5 pg (27.0-31.0); MEAN CORPUSCULAR HGB CONC 32.6 g/dL (32.0-36.0); MEAN CORPUSCULAR VOLUME 90.5 fL (81.0-99.0); MEAN PLATELET VOLUME 10.2 fL (7.9-10.8); RED BLOOD COUNT 3.8 10^6/uL (4.20-5.40); RED CELL DISTRIBUTION WIDTH 13.3 % (12.0-15.0); WHITE BLOOD COUNT 9.8 x10^3/uL (4.8-10.8)
== END 2022-04-14 14:17 | disposition home or self-care (01) ==
LOC: LAB.N 14:16
PROVIDERS: ATTEND Nurse Practitioner Obstetrics & Gynecology
DX: Z36.9 Encounter for antenatal screening, unspecified (principal)
CPT/HCPCS: 36415; 82950; 85027

== ENCOUNTER 2022-05-01 07:51 | Outpatient (CLI) | payer OTHER ==
[2022-05-01 08:32] LABS: GTT GLUCOSE,FASTING 94 mg/dL (70-100)
== END 2022-05-01 07:52 | disposition home or self-care (01) ==
LOC: LAB 07:51
PROVIDERS: ATTEND Nurse Practitioner Obstetrics & Gynecology
DX: O99.013 Anemia complicating pregnancy, third trimester (principal)
CPT/HCPCS: 36415; 82951; 82952

== ENCOUNTER 2022-06-19 01:52 | Inpatient (IN) | payer OTHER ==
[2022-06-19 02:32] LABS: RUPTURE OF MEMBRANES PLUS POSITIVE (NEGATIVE)
[2022-06-19] MEDS ORDERED: NIFEdipine 10 MG CAPSULE PO PRN (02:42)
[2022-06-19] MEDS ORDERED: miSOPROStoL 200 MCG TABLET PR PRN (02:42)
[2022-06-19] MEDS ORDERED: lidocaine 1% 20 ML MDV ID PRN (02:42)
[2022-06-19] MEDS ORDERED: OXYTOCIN/SODIUM CHLORIDE 500 ML IV PRN (02:42)
[2022-06-19] MEDS ORDERED: miSOPROStoL 200 MCG TABLET BC PRN (02:42)
[2022-06-19] MEDS ORDERED: CARBOPROST TROMETHAMINE 250 MCG/ML AMP IM PRN (02:42)
[2022-06-19] MEDS ORDERED: OXYTOCIN 10 UNIT/ML VIAL IM PRN (02:42)
[2022-06-19] MEDS ORDERED: TERBUTALINE 1 MG/ML VIAL SUBQ PRN (02:42)
[2022-06-19] MEDS ORDERED: LABETALOL 20 MG/4 ML SYRINGE IVP PRN ×3 (02:42)
[2022-06-19] MEDS ORDERED: ONDANSETRON 4 MG/2 ML VIAL IVP PRN (02:42)
[2022-06-19] MEDS ORDERED: METHYLERGONOVINE 0.2 MG/ML VIAL IM PRN (02:42)
[2022-06-19] MEDS ORDERED: TRANEXAMIC ACID IN NACL 1,000 MG/100 ML BAG IV PRN (02:42)
[2022-06-19] MEDS ORDERED: hydrALAZINE INJ 20 MG/ML VIAL IVP PRN ×2 (02:42)
[2022-06-19] MEDS ORDERED: SODIUM CHLORIDE FLUSH 0.9% 10 ML SYRINGE IVP PRN (02:42)
[2022-06-19] MEDS ORDERED: LACTATED RINGERS 1,000 ML IV SCH (03:00)
[2022-06-19] MEDS ORDERED: OXYTOCIN/SODIUM CHLORIDE 500 ML IV SCH (03:00)
--- NOTE | 2022-06-19 03:11 | HISTORY & PHYSICAL EXAMINATION ---
Admit History - Visit Reason Visit Reason: Membranes rupture - : 2 Parity: 1 Premature: 0 Ectopic: 0 : 1 Care: positive: [facility] Risk/History: positive: None Complications This : positive: None Smoking Status: Never smoker - Mother's Labs Mother's Blood Type: positive: O Mother's RH: positive: Positive GBS: positive: Group B Step Negative Rubella Status: positive: Immune Meds/Allgy - Home Medications Home Medications: Ambulatory Orders Medication Instructions Recorded Confirmed Guaifenesin/Dextromethorphan 118 ml PO Q4HR PRN #20 ml 03/16/22 [Robitussin Cough-Chest Dm Liq] - Allergies Allergies/Adverse Reactions: Allergies Allergy/AdvReac Type Severity Reaction Status Date / Time peanut Allergy Anaphylaxis Verified 08/28/21 14:31 Review of Systems - Constitutional Constitutional: denies: Fatigue, Fever, Chills, Malaise - Eyes Eyes: denies: Blurred vision, Spots in vision, Dipolpia - Cardiovascular Cariovascular: denies: Irregular heart rate, Palpitations, Chest pain, Edema - Respiratory Respiratory: denies: Cough, Wheezing, SOB at rest - Gastrointestinal Gastrointestinal: denies: Constipation, Diarrhea, Nausea, Vomiting - Genitourinary Genitourinary: denies: Dysuria - Integumentary Integumentary: denies: Rash, Pruritis - Neurological Neurological: denies: Headache Physical - Abdominal Exam Vital Signs: Temp Pulse Resp BP Pulse Ox O2 Flow Rate 37.1 C 70 18 130/85 H 98 06/19/22 02:44 06/19/22 02:44 06/19/22 02:44 06/19/22 02:44 06/19/22 02:44 Contraction Frequency (min/apart): occasional Contraction Intensity: positive: Mild Uterine Resting Tone: positive: Soft - Monitoring Heart Rate Baseline: 135 Strip Review: positive: Category I - Presentation Presentation: positive: Vertex - Vaginal Exam Membranes: positive: Membranes ruptured Dilation (in cm): 4 Effacement (%): 80 Station: positive: -2 Cervical Position: positive: Posterior - Speculum Exam Speculum Exam Performed: positive: No Findings: positive: Other Plan for Labor - Plan For Labor I expect patient to be DC'd or transferred within 96 hours.: Yes Plan for Labor: HPI: This 31yo @ 38.2wks gestation by LMP c/w 7.3wk U/S presents to [facility] with c/o vaginal leakage of fluid which occurred 06/18/2022 @ 1000 and was noted to be clear per patient. She reports occasional mild menstrual-like cramping with some mild abdominal tightening when they occur but denies pain. She denies vaginal bleeding and reports +FM. She is supported by her Manpreet. She [facility] for the duration of her which has remained uncomplicated with the exception of an elevated 1 hour glucola which was followed by a WNL 3 hour GTT. She has received consistent and adequate care for the duration of her . 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 SAB x1. Last pap 2019 WNL, No hx of abnormals. Medical Hx: Anxiety Surgical Hx: none Family Hx: HTN, Heart disease, cancer, osteoporosis Meds: PNV, Sertraline 50mg PO daily Allergies: None known drug allergies; Peanuts - anaphylaxis Social: , lives with Manpreet. Works as a teacher. Manpreet is [employer] and deployed until 12/2022. No tobacco, ETOH or recreational drug use. Caffeine intake - none. course: Initial U/S @ 7.3wks c/w LMP dating O positive; antibody negative Rubella immune; varicella NONIMMUNE FAS WNL. Posterior placenta, no previa. Size c/w dating (EFW 76%tile) Glucola: 150 3 hr GTT: WNL (94, 152, 141, 103) Tdap: 05/2022 COVID vaccine: #2-08/2020 GBS neg Physical exam: Normocephalic, atraumatic Heart RRR w/o M/G/R Lungs CTAB Abdomen graivd, soft, nontender EFW 3200g FHR Baseline 140s, moderate variability, + accels, no decels Contractions palpate mild occasionally with soft resting tone SVE 4/80/-2, posterior, soft. Vertex Grossly ruptured membranes with clear fluid. ROM+ confirms - positive. Bilateral LE's trace edema. Mood is good. Assessment: 31yo @ 38.2 wks gestation by LMP c/w 7.3wk U/S Rupture of membranes Early labor FHR Category I GBS negative Plan: Admit for active management. Continuous monitoring. Initiate pitocin for labor augmentation with titration per protocol. Nitrous oxide per maternal request. Jacuzzi per maternal request. Anticipate .
[2022-06-19 03:47] LABS: ALBUMIN 2.6 g/dL (3.2-5.5); ALBUMIN/GLOBULIN RATIO 0.7 (1.0-2.2); BILIRUBIN,TOTAL 0.5 mg/dL (0.2-1.0); CALCIUM 9.2 mg/dL (8.5-10.3); CREATININE 0.5 mg/dL (0.4-1.0); POTASSIUM 3.4 mmol/L (3.5-5.0); TOTAL PROTEIN 6.2 g/dL (6.7-8.2)
[2022-06-19] MEDS ORDERED: ROPIVACAINE 0.2% 200 MG/100 ML BAG EP ONE (03:47)
[2022-06-19 03:50] LABS: BASOPHILS % (AUTO) 0.3 %; EOSINOPHILS # (AUTO) 0.1 10^3/uL (0.0-0.7); EOSINOPHILS % (AUTO) 0.7 %; HCT - HEMATOCRIT 30.7 % (37.0-47.0); HGB - HEMOGLOBIN 9.8 g/dL (12.0-16.0); LYMPHOCYTES % (AUTO) 19.8 %; MEAN CORPUSCULAR HEMOGLOBIN 26.3 pg (27.0-31.0); MEAN CORPUSCULAR HGB CONC 31.9 g/dL (32.0-36.0); MEAN CORPUSCULAR VOLUME 82.5 fL (81.0-99.0); MEAN PLATELET VOLUME 11.4 fL (7.9-10.8); MONOCYTES # (AUTO) 0.8 10^3/uL (0.0-1.0); MONOCYTES % (AUTO) 8.4 %; NEUTROPHILS # (AUTO) 6.7 10^3/uL (1.5-6.6); NEUTROPHILS % (AUTO) 67.9 %; PLT - PLATELET COUNT 161 10^3/uL (130-450); RED BLOOD COUNT 3.72 10^6/uL (4.20-5.40); RED CELL DISTRIBUTION WIDTH 13.6 % (12.0-15.0); WHITE BLOOD COUNT 9.9 x10^3/uL (4.8-10.8)
[2022-06-19] MEDS ORDERED: ePHEDrine 50 MG/ML VIAL IVP PRN (05:06)
[2022-06-19] MEDS ORDERED: ROPIVACAINE 0.2% 200 MG/100 ML BAG EP PRN (05:06)
[2022-06-19] MEDS ORDERED: NALOXONE 0.4 MG/ML VIAL IVP PRN (05:06)
--- NOTE | 2022-06-19 05:07 | ANESTHESIA ---
Pre-Anesthesia VS, & Labs - Diagnosis active labor - Procedure vaginal delivery Vital Signs: Temp Pulse Resp BP Pulse Ox O2 Flow Rate 37.1 C 70 18 130/85 H 98 06/19/22 02:44 06/19/22 02:44 06/19/22 02:44 06/19/22 02:44 06/19/22 02:44 Height: 5 ft 4 in Weight (kg): 68.492 kg Body Mass Index: 25.9 BMI Classification: Overweight - NPO Last Fluid Intake: clear liquids - Is Patient ?: Yes - Lab Results Current Lab Results: Laboratory Tests 06/19/22 03:20: Sodium 137, Potassium 3.4 L, Chloride 106, Carbon Dioxide 19 L, Anion Gap 12.0, BUN 5 L, Creatinine 0.5, Estimated GFR (MDRD) 144, Glucose 81, Calcium 9.2, Total Bilirubin 0.5, AST 19, ALT 12, Alkaline Phosphatase 154 H, Total Protein 6.2 L, Albumin 2.6 L, Globulin 3.6, Albumin/Globulin Ratio 0.7 L 06/19/22 03:20: WBC 9.9, RBC 3.72 L, Hgb 9.8 L, Hct 30.7 L, MCV 82.5, MCH 26.3 L , MCHC 31.9 L, RDW 13.6, Plt Count 161, MPV 11.4 H, Neut # (Auto) 6.7 H, Lymph # (Auto) 2.0, [place] # (Auto) 0.8, Eos # (Auto) 0.1, Baso # (Auto) 0.0, Absolute Nucleated RBC 0.00, Nucleated RBC % 0.0 06/19/22 03:20: Blood Type O POSITIVE, Antibody Screen NEGATIVE Lab results reviewed: Yes Fish Bones: 06/19/22 03:20 06/19/22 03:20 Home Medications and Allergies Active Medications Carboprost Tromethamine (Carboprost Tromethamine 250 Mcg/Ml Amp) 250 mcg IM .ONCE PRN PRN Reason: Hemorrhage Hydralazine HCl (Hydralazine Inj 20 Mg/Ml Vial) 5 - 10 mg IVP Q20M PRN; Protocol PRN Reason: SBP> or= 160 OR DBP> or= 110 Hydralazine HCl (Hydralazine Inj 20 Mg/Ml Vial) 10 mg IVP .ONCE PRN; Protocol PRN Reason: SBP> or= 160 OR DBP> or= 110 Oxytocin/Sodium Chloride (Pitocin/Sodium Chloride) 500 mls @ 999 mls/hr IV PRN PRN; Protocol PRN Reason: POST- HEMORR PREVENTION Tranexamic Acid (Tranexamic 1,000 Mg/100ml-Nacl) 1,000 mg in 100 mls @ 600 mls/hr IV Q30M PRN PRN Reason: EBL >1200mL and within 3hr Lactated Ringer's (Lr) 1,000 mls @ 125 mls/hr IV .Q8H [id number] Last Admin: 06/19/22 03:48 Dose: 125 mls/hr Oxytocin/Sodium Chloride (Pitocin/Sodium Chloride) 500 mls @ 1 mls/hr IV TITR JAZMYN; Protocol Labetalol HCl (Labetalol 20 Mg/4 Ml Syringe) 20 - 80 mg IVP Q10M PRN; Protocol PRN Reason: SBP> or= 160 OR DBP> or= 110 Labetalol HCl (Labetalol 20 Mg/4 Ml Syringe) 20 mg IVP .ONCE PRN; Protocol PRN Reason: SBP> or= 160 OR DBP> or= 110 Labetalol HCl (Labetalol 20 Mg/4 Ml Syringe) 20 - 40 mg IVP Q10M PRN; Protocol PRN Reason: SBP> or= 160 OR DBP> or= 110 Lidocaine HCl (Lidocaine 1% 20 Ml Mdv) 20 ml ID .ONCE PRN PRN Reason: PERINEAL REPAIR Stop: 06/22/22 02:42 Methylergonovine Maleate (Methylergonovine 0.2 Mg/Ml Vial) 0.2 mg IM .ONCE PRN PRN Reason: Hemorrhage Misoprostol (Misoprostol 200 Mcg Tablet) 600 mcg BC .ONCE PRN PRN Reason: Hemorrhage Misoprostol (Misoprostol 200 Mcg Tablet) 800 mcg UT .ONCE PRN PRN Reason: Hemorrhage Nifedipine (Nifedipine 10 Mg Capsule) 10 - 20 mg PO Q20M PRN; Protocol PRN Reason: SBP> or= 160 OR DBP> or= 110 Ondansetron HCl (Ondansetron 4 Mg/2 Ml Vial) 4 mg IVP PRN PRN PRN Reason: Nausea / Vomiting Oxytocin (Oxytocin 10 Unit/Ml Vial) 10 unit IM .ONCE PRN PRN Reason: Step One if no IV access. Sodium Chloride (Sodium Chloride Flush 0.9% 10 Ml Syringe) 10 ml IVP PRN PRN PRN Reason: NEEDED PER PROVIDER ORDERS Terbutaline Sulfate (Terbutaline 1 Mg/Ml Vial) 0.25 mg SUBQ .ONCE PRN PRN Reason: Tachystole Allergies/Adverse Reactions: Allergies Allergy/AdvReac Type Severity Reaction Status Date / Time peanut Allergy Anaphylaxis Verified 08/28/21 14:31 Anes History & Medical History - Anesthetic History Family history of Anesthesia Complications: Denies Family history of Malignant Hyperthermia: Denies - Medical History Cardiovascular: reports: None Pulmonary: reports: None Gastrointestinal: reports: None Urinary: reports: None Neuro: reports: None Musculoskeletal: reports: None Endocrine/Autoimmune: reports: None Blood Disorders: reports: None Skin: reports: None Smoking Status: Never smoker Psychosocial: reports: No issues indicated History of Cancer?: No - Obstetrical History : 2 Parity: 1 Events: reports: None Complications: reports: None Exam General: Alert, Oriented x3, Cooperative, No acute distress Dental: WNL Mouth Openin Fingerbreadth Neck Mobility: Normal Mallampati classification: II Thyromental Distance: 4-6 cm Mental/Cognitive Status: Alert/Oriented X3, Normal for patient Plan Anesthesia Type: Epidural Consent for Procedure(s) Verified and Reviewed: Yes Code Status: Attempt Resuscitation ASA classification: 2-Mild systemic disease Is this case an emergency?: No
--- NOTE | 2022-06-19 07:48 | DELIVERY NOTE ---
Delivery Note - Labor Labor: positive: Spontaneous, Augmented by oxytocin - Delivery Method Delivery Method: positive: Spontaneous vaginal delivery - Presentation Presentation: positive: Vertex, SETH - left occiput anterior - Nuchal Cord Nuchal Cord: positive: None - Amniotic Fluid Description Amniotic Fluid Description: positive: Clear - Episiotomy Type Episiotomy Type: positive: None - Laceration Laceration: positive: None - Delivery Outcome Delivery Outcome: positive: Livebirth - Cr[place] Cr[place]: positive: Placed in direct skin contact with mother, Stimulated, Warmed, Burton used Cr[place] sex: positive: Female - Cord Cord: positive: 3 vessels - Placenta Placenta: positive: Intact, Spontaneous - Estimated Blood Loss Estimated Blood Loss (in cc): 300 - Post Delivery Events Post Delivery Events: positive: No post delivery events - Delivery Comments (Free Text/Narrative) Delivery Comments (Free Text/Narrative): Labor: This 31yo @ 38.2wks gestation by LMP c/w 9wk U/S presented on 05/19/2022 @ 0200 with c/o vaginal leakage of clear fluid on 06/18/2022 @ 2200. Cervix was 4/80/-2 and vertex with grossly ruptured membranes. Epidural placed per maternal request. Pitocin initiated for labor augmentation for a maximum infusion rate of 4mU/mL. Pt progressed to c/c/+2 @ 0721 with onset of sponatneous, active pushing @ 0726. : Normal SVB of viable female on 06/19/2022 @ 0727. No nuchal cord. The was placed on maternal abdomen, stimulated, dried, and placed skin to skin. Apgars were 8/8 at 1 and 5 min respectively. Pitocin administered via IV for hemostasis. The umbillical cord was allowed to stop pulsating at which time it was doubly clamped by CNM and cut by FOB. 3VC. Cord blood was obtained. Fundal massage and gentle cord traction applied for active management of the third stage. Placenta delivered spontaneously and intact at 0732. EBL 300mL. Fourth stage: Uterine fundus firm and there is no excessive bleeding. The perineum, vagina, and cervix were inspected and noted to be intact. initiated. Family bonding well. Both mother and baby were left in stable condition.
[2022-06-19] MEDS ORDERED: HYDROCORTISONE 1% CREAM 28 GM TUBE PR PRN (07:55)
[2022-06-19] MEDS ORDERED: WITCH HAZEL/GLYCERIN 1 PAD TOP PRN (07:55)
[2022-06-19] MEDS ORDERED: CALCIUM CARBONATE CHEW 500 MG TABLET PO SCH (09:04)
[2022-06-19] MEDS: ACETAMINOPHEN 500 MG TABLET PO SCH ×2 (09:22→16:48)
[2022-06-19] MEDS: IBUPROFEN 800 MG TABLET PO SCH ×3 (09:23→21:22)
[2022-06-19] MEDS: DOCUSATE SODIUM 100 MG CAPSULE PO SCH ×2 (09:23→21:23)
[2022-06-20] MEDS: ACETAMINOPHEN 500 MG TABLET PO SCH ×2 (01:24→11:10)
[2022-06-20] MEDS: IBUPROFEN 800 MG TABLET PO SCH ×2 (03:52→11:10)
[2022-06-20 07:39] LABS: BASOPHILS % (AUTO) 0.4 %; EOSINOPHILS # (AUTO) 0.2 10^3/uL (0.0-0.7); EOSINOPHILS % (AUTO) 1.6 %; HGB - HEMOGLOBIN 8.7 g/dL (12.0-16.0); LYMPHOCYTES % (AUTO) 19.4 %; MEAN CORPUSCULAR HEMOGLOBIN 26.9 pg (27.0-31.0); MEAN CORPUSCULAR HGB CONC 31.1 g/dL (32.0-36.0); MEAN CORPUSCULAR VOLUME 86.4 fL (81.0-99.0); MEAN PLATELET VOLUME 10.7 fL (7.9-10.8); MONOCYTES # (AUTO) 0.7 10^3/uL (0.0-1.0); MONOCYTES % (AUTO) 6.8 %; NEUTROPHILS # (AUTO) 7.2 10^3/uL (1.5-6.6); NEUTROPHILS % (AUTO) 69.7 %; PLT - PLATELET COUNT 192 10^3/uL (130-450); RED BLOOD COUNT 3.24 10^6/uL (4.20-5.40); RED CELL DISTRIBUTION WIDTH 14.1 % (12.0-15.0); WHITE BLOOD COUNT 10.3 x10^3/uL (4.8-10.8)
[2022-06-20 09:29] VITALS: BP 128/84
--- NOTE | 2022-06-20 10:06 | Discharge Plan ---
Discharge Plan Problem Reviewed?: Yes Disposition: Home, Self Care Condition: Good Diet: Regular Activity Restrictions: No Restrictions Shower Restrictions: No Driving Restrictions: No Weight Bearing: Full Weight No Smoking: If you smoke, Please STOP! Call for help. Follow-up with: Taylor Harvey CNM, ARNP [Primary Care Provider] -
--- NOTE | 2022-06-20 10:15 | DISCHARGE SUMMARY ---
Discharge Summary Condition at Discharge: Good Discharge Disposition: 01 Home, Self Care - HOSPITAL COURSE Hospital Course: Date of Admission: 06/19/2022 Date of Discharge: 06/20/2022 Diagnosis on Admission: 1. 31yo @ 38.2 wks gestation by LMP c/w 7.3wk U/S 2. Rupture of membranes 3. Early labor 4. FHR Category I 5. GBS negative Diagnosis on Discharge: 1. 31yo PPD#1 s/p TSVD viable female infant on 06/19/2022 2. Intact perineum, 3. 4. Normal recovery Brief History: She is a patient of [facility] who presented on with c/o vaginal leakage of clear fluid. Cervix was 4/80/-2, posterior and vertex with grossly ruptured membranes. She was admitted and an epidural was placed per maternal request. Pitocin was initiated with a maximum infusion rate of 4mU/mL. She progressed to spontaneously deliver a viable female on 06/19/2022 @ 0727 over intact perineum. EBL 300mL. She did have a 1 hour delayed increased rate of vaginal bleeding and a repeat CBC this morning indicated an appropriate drop in Hgb/Hct and patient has remained asymptomatic. She has been doing well in her course. She is ambulating and tolerating a regular diet. She is urinating without difficulty and her lochia is normal. Her pain is well controlled with oral medications. She will be discharged home today on day #1 with instructions to continue taking her vitamin while and to continue taking ibuprofen and Tylenol over the counter as needed for pain management. She intends to follow up with myself at [facility] in 1 week for routine visit or sooner if needed. She has been given precautions to call if she has any worsening fevers, chills, abdominal pain, increased vaginal bleeding or foul smelling vaginal lochia. Physical exam: Normocephalic, atraumatic. Heart RRR w/o M/G/R, lungs CTAB, abdomen soft and nontender with fundus firm at U-1, perineum intact, light lochia rubra, bilateral LE's trace edema. Mood is good. - ALLERGIES Allergies/Adverse Reactions: Allergies Allergy/AdvReac Type Severity Reaction Status Date / Time peanut Allergy Anaphylaxis Verified 08/28/21 14:31 - MEDICATIONS Home Medications: Ambulatory Orders Medication Instructions Recorded Confirmed Guaifenesin/Dextromethorphan 118 ml PO Q4HR PRN #20 ml 03/16/22 [Robitussin Cough-Chest Dm Liq] - LABS Result Diagrams: 06/20/22 07:29 06/19/22 03:20
[2022-06-20] MEDS: DOCUSATE SODIUM 100 MG CAPSULE PO SCH (11:10)
--- NOTE | 2022-06-20 11:50 | Labor Flowsheet ---
Labor Flowsheet Datetime Report Generated by CPN: 06/20/2022 11:49 Datetime: 06/20/2022 07:34 VITAL SIGNS NBP Sys/Margo/Mean (mmHg): 128 : 89 : 96 Pulse: 83 Datetime: 06/19/2022 16:50 SpO2 (%): 96 Datetime: 06/19/2022 12:25 Stage of : Recovery Temperature (C): 37.0 Datetime: 06/19/2022 11:00 PAIN Pain Scale: 1 Pain Presence: Intermittent Pain Type: Cramping Datetime: 06/19/2022 08:09 Medication Comments: 800mg miso given for pp bleeding Datetime: 06/19/2022 07:56 Membranes Ruptured Date/Time: 06/18/2022 22:00 Membranes Rupture Method: Spontaneous Amniotic Fluid Color: Clear Amniotic Fluid Amount: Small Datetime: 06/19/2022 07:27 Stage 2 Comments: Head delivered Datetime: 06/19/2022 07:25 STAGE 2 Pushing: Coached on Pushing Pushing Position: Pushing with Contractions Pushing Progress: Descent with Pushing; Caput Noted; with Pushing; Pushing Effectively wit h Contractions Datetime: 06/19/2022 07:21 VAGINAL EXAM Dilatation (cm): 10.0 Effacement (%): 100 Station: 2 Exam by: Taylor Vaginal Bleeding: None Datetime: 06/19/2022 07:15 LaborFlag: Labor Datetime: 06/19/2022 07:00 UTERINE ACTIVITY Monitor Mode: External Monitor Interventions for UA: Perdido Adjusted Frequency (min): 2-4 Quality: Strong Duration (sec): 40-60 Pattern: Normal: <= 5 Contractions in 10 Minutes Resting Tone (Palpate): Relaxed Pitocin Checklist: At Least 1 Acceleration of 15 bpm x 15 Seconds in 30 Minutes or Adequate Variabi lity; No More than 1 Late Deceleration Occurred in Past 30 Minutes; No More than 2 Variable Decelerat ions > 60 Seconds in Duration and decreasing >60 bpm in 30 minutes; No More than 5 Uterine Contractio ns in 10 Minutes for any 20 Minute Interval; Uterus Palpates Soft between Contractions Contraction Comments: some palpated, toco picking up at end of this segment ASSESSMENT A Monitor Mode: Telemetry FHR Baseline Rate : 130 Variability: Moderate 6-25 bpm Accelerations: 15X15 Decelerations: None Category: Category I Datetime: 06/19/2022 06:57 MEDICATIONS Pitocin (milliunits): Increased to @ 4 mu Datetime: 06/19/2022 06:28 Patient Position/Activity: Right Tilt Datetime: 06/19/2022 05:59 Comments: adjusting monitor Datetime: 06/19/2022 05:37 I/O Interventions: Hall Cath Inserted Datetime: 06/19/2022 05:16 Respirations: 18 Datetime: 06/19/2022 04:49 Epidural Procedure: Completed Datetime: 06/19/2022 04:40 Anesthesia Comments: Lidocain Datetime: 06/19/2022 04:27 PROCEDURE TIME OUT Procedure Verify: Correct Patient Identity; Correct Side and Site are Marked; Accurate Procedure Co nsent Form; Agreement on Procedure to be Done; Correct Patient Position; Relevant Images and Results are Properly Labeled and Displayed; Addressed Need to Administer Antibiotics or Fluids for Irrigation ; Safety Precautions Based on Patient History or Medication Use ANESTHESIA Anesthesia Plans: Epidural Datetime: 06/19/2022 04:23 Patient Care Comments: LR at 125 Datetime: 06/19/2022 03:58 Provider Reviewed Strip: No COMMUNICATION Communication: Call/Page Placed to Provider Provider Notified (Name): [employer]ENT Vidhya Notification Reason: Status Update; Labor Status; Membrane Status; Pain Communication Comments: Pt requesting epidural Datetime: 06/19/2022 03:48 PATIENT CARE IV/Blood Work: IV Infusing per Order Datetime: 06/19/2022 02:34 MATERNAL ASSESSMENT Level of Consciousness: Alert DTR's/Clonus: DTRs 2+ Headache: Denies Nausea/Vomiting: Denies RUQ Epigastric Pain: Denies
== END 2022-06-20 11:15 | disposition home or self-care (01) | DRG 807 ==
LOC: FBP 01:52 → OBSVTOIN 02:40
PROVIDERS: ADMIT Nurse Practitioner Obstetrics & Gynecology; ATTEND Nurse Practitioner Obstetrics & Gynecology
PROC: 10E0XZZ Delivery of Products of Conception, External Approach (ICD-10-PCS; principal; 2022-06-19)
DX: O72.2 Delayed and secondary postpartum hemorrhage (principal); Z37.0 Single live birth; Z3A.38 38 weeks gestation of pregnancy
CPT/HCPCS: 36415; 80053; 84112; 85025; 86850; 86900; 86901; 99215; A9270; J7120